=== PATIENT | male | born 2000 | race Caucasian/White ===

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

== ENCOUNTER 2019-01-24 12:32 | Outpatient (CLI) | payer MEDICAID ==
[2019-01-24 13:06] LABS: Basophils % (Auto) 0.2 % (0.0-1.8); Eosinophils % (Auto) 0.8 % (0.0-4.3); Hematocrit 46.6 % (35.5-45.6); Hemoglobin 16.2 gm/dl (11.8-15.2); Lymphocytes # (Auto) 1.2 K/mm3 (1.2-5.4); Mean Corpuscular HGB Conc 35 % (32-34); Mean Corpuscular Volume 93 fl (84-94); Monocytes # (Auto) 0.5 K/mm3 (0.0-0.8); Monocytes % (Auto) 9.1 % (0.0-7.3); Platelet Count 162 K/mm3 (140-440); Red Cell Distribution Width 12.5 % (13.2-15.2)
== END 2019-01-24 12:33 | disposition home or self-care (01) ==
LOC: LAB 12:32
PROVIDERS: ATTEND Pediatrics
DX: Z51.81 Encounter for therapeutic drug level monitoring (principal); R68.89 Other general symptoms and signs
CPT/HCPCS: 36415; 85025

== ENCOUNTER 2021-07-03 09:34 | Outpatient (CLI) | payer MEDICAID ==
[2021-07-03 10:46] LABS: Alanine Aminotransferase 18 units/L (7-56); Albumin 4.7 g/dL (3.9-5); Blood Urea Nitrogen 16 mg/dL (9-20); Calcium 9.3 mg/dL (8.4-10.2); Hemolysis Index 33
[2021-07-03 10:48] LABS: BUN/Creatinine Ratio 27
== END 2021-07-03 09:35 | disposition home or self-care (01) ==
LOC: LAB 09:34
DX: G40.B09 Juvenile myoclonic epilepsy, not intractable, without status epilepticus (principal)
CPT/HCPCS: 36415; 80053; 80201; 82306